=== PATIENT | female | born 1975 | race Caucasian/White ===

== ENCOUNTER 2016-08-25 18:13 | Emergency (ER) | payer OTHER ==
--- NOTE | 2016-08-25 20:09 | ED ---
Extremity Problem HPI - General Chief complaint: Extremity Problem,Nontraumatic Stated complaint: Post surgical bleed Time Seen by Provider: 08/25/16 19:42 Source: patient Mode of arrival: wheelchair Limitations: no limitations - History of Present Illness Initial comments: This 40-year-old white female presents for recheck of left leg wound. She apparently just had surgery earlier this week to move some hardware from a previous surgery resulting from a trimalleolar fracture of the left ankle. She had this surgery done by Dr. Topete 2 days ago. She noticed today that there was some slight blood oozing through the bandage. She also has had some mild to moderate throbbing. She was prescribed Motrin 800 as well as some [place]. She states that she does not like taking the narcotics so has only been taking the [place] and this seems to be alleviating her pain. She has not been ambulating on her leg as of yet. No other complaints or modifying factors. No fevers or chills. She was sent in by the on-call physician. - Related Data Home Medications Medication Instructions Recorded Confirmed Phentermine HCl [Adipex-P] 37.5 mg PO DAILY 05/25/14 05/26/14 Levothyroxine Sodium [Synthroid] 25 mcg PO DAILY 05/26/14 05/26/14 Linaclotide [Linzess] 145 mcg PO DAILY 05/26/14 05/26/14 Previous Rx's Medication Instructions Recorded Aspirin 325 mg PO BID 30 Days 05/27/14 HYDROcodone/APAP 10-325MG [[place] 1 - 2 each PO Q6H PRN #90 tab 05/27/14 10] Warfarin [Coumadin] 2.5 mg PO Q2D #7 tab 05/27/14 Diazepam [Valium] 5 mg PO Q8H PRN #30 tab 05/29/14 traMADol HCL [Ultram] 50 mg PO Q6HR PRN #60 tab 05/29/14 Allergies Allergy/AdvReac Type Severity Reaction Status Date / Time bee venom protein (honey bee) Allergy Anaphylaxis Verified 08/25/16 18:34 Review of Systems ROS Statement: Those systems with pertinent positive or pertinent negative responses have been documented in the HPI. ROS Other: All systems not noted in ROS Statement are negative. Past Medical History Past Medical History: Thyroid Disorder Additional Past Medical History / Comment(s): 05/25/14 Pt presented to [facility] ER after having gotten out of her car at work and slipped and fell- she heard a crack and was unable to walk on her L leg. States she also hit her head. Other HX: Pt was in [facility] last week for N/V/D and was told she had a slight "stomach bug" and IBS. She also has hx of a stomach diverticulum. Hypothyroid. History of Any Multi-Drug Resistant Organisms: None Reported Past Surgical History: Cholecystectomy, Orthopedic Surgery Additional Past Surgical History / Comment(s): Lap jus May 2013 with a tiny piece of liver removed d/t adherence, Thyroid, ganglion cyst removed from L wrist. Past Anesthesia/Blood Transfusion Reactions: No Reported Reaction Additional Past Anesthesia/Blood Transfusion Reaction / Comment(s): Pt has never recieved blood. Past Psychological History: No Psychological Hx Reported Additional Psychological History / Comment(s): Pt lives with her david and her 3 children. She is normally independent. She drives a car. Smoking Status: Never smoker Past Alcohol Use History: Occasional Past Drug Use History: None Reported - Past Family History Father Family Medical History: Congestive Heart Failure (CHF), Myocardial Infarction ( [place]) Additional Family Medical History / Comment(s): Father of a massive [place] at age 47 Mother Family Medical History: No Reported History Additional Family Medical History / Comment(s): Mother was born with one kidney. General Exam Limitations: no limitations General appearance: alert, in no apparent distress Extremities exam: Present: tenderness (There is some mild tenderness noted to the left distal leg.), other (There is well-healing nonbleeding postsurgical wounds noted primarily to the lateral aspect of the left distal tibia/fibula region and also on the medial malleoli her region to a lesser extent. There is no identifiable erythema. There are no signs of infection. There is no current drainage or bleeding.) Neurological exam: Present: alert, oriented X3. Absent: motor sensory deficit Course Vital Signs 08/25/16 18:29 Temperature 98.4 F Pulse Rate 88 Respiratory 18 Rate Blood Pressure 139/92 O2 Sat by Pulse 96 Oximetry Medical Decision Making - Medical Decision Making The patient was seen and examined. A dressing was removed. It appears that the wound is healing well and there is no evidence of infection or bleeding. Is felt that she is stable for discharge home and leaves in no distress. She is instructed to take her Motrin or [place] as needed for pain. The wound was redressed exactly like it was prior. Disposition Clinical Impression: Encounter for postoperative wound check, Bleeding from wound Disposition: HOME SELF-CARE Condition: Good Instructions: Care For Your Stitches (ED) Additional Instructions: Please follow-up with Dr. Topete as previously instructed. Please continue with your postsurgical instructions. Referrals: Olga Lidia Gross MD [Primary Care Provider] - 1-2 days Time of Disposition: 20:08
[2016-08-25 20:50] VITALS: BP 155/88; PULSE 89; RESP 16; TEMP 98.7
== END 2016-08-25 20:50 | disposition home or self-care (01) ==
LOC: EC 18:13
DX: M96.831 Postprocedural hemorrhage of a musculoskeletal structure following other procedure (principal); E03.9 Hypothyroidism, unspecified; K58.9 Irritable bowel syndrome, unspecified; Z79.899 Other long term (current) drug therapy; Z91.030 Bee allergy status; Z96.662 Presence of left artificial ankle joint; Y83.1 Surgical operation with implant of artificial internal device as the cause of abnormal reaction of the patient, or of later complication, without mention of misadventure at the time of the procedure
CPT/HCPCS: 99282

== ENCOUNTER 2016-09-03 20:20 | Emergency (ER) | payer OTHER ==
--- NOTE | 2016-09-03 21:14 | ED ---
Extremity Problem HPI - General Chief complaint: Extremity Problem,Nontraumatic Stated complaint: L leg swelling Time Seen by Provider: 09/03/16 21:02 Source: patient Mode of arrival: ambulatory Limitations: no limitations - History of Present Illness Initial comments: This patient is a 40-year-old woman who presents because she has had increased swelling to the left lower extremity and also some pain that she describes as "like when you pull a calf muscle." She notes that less than 2 weeks ago she had hardware removed from her left ankle that had been placed for ORIF of a trimalleolar fracture. Patient denies chest symptoms, including no fever or chills, cough, hemoptysis, dyspnea, chest pains, palpitations, lightheadedness or syncope. MD Complaint: extremity pain, extremity swelling Onset/Timin -: days(s) Location: left, lower extremity History of Same: Yes Quality: dull Consistency: constant Improves with: elevation Worsens with: walking Associated Symptoms: denies other symptoms - Related Data Home Medications Medication Instructions Recorded Confirmed Cephalexin [Keflex] 500 mg PO QID 08/25/16 09/03/16 HYDROcodone/APAP 5-325MG [[place] 1 tab PO Q6HR PRN 08/25/16 09/03/16 5-325] Ibuprofen [Motrin] 800 mg PO TID PRN 08/25/16 09/03/16 Thyroid,Pork [[place] Thyroid] 60 mg PO QAM 08/25/16 09/03/16 Fluconazole [Diflucan] 150 mg PO ONCE 09/03/16 09/03/16 Allergies Allergy/AdvReac Type Severity Reaction Status Date / Time venom-honey bee Allergy Anaphylaxis Verified 09/03/16 21:05 Review of Systems ROS Statement: Those systems with pertinent positive or pertinent negative responses have been documented in the HPI. ROS Other: All systems not noted in ROS Statement are negative. Constitutional: Denies: fever, chills Respiratory: Denies: cough, dyspnea, hemoptysis Cardiovascular: Reports: as per HPI, edema. Denies: chest pain, palpitations, syncope Gastrointestinal: Denies: abdominal pain, vomiting, diarrhea Musculoskeletal: Denies: back pain Skin: Denies: rash Neurological: Denies: headache Past Medical History Past Medical History: Thyroid Disorder Additional Past Medical History / Comment(s): 05/25/14 Pt presented to [facility] ER after having gotten out of her car at work and slipped and fell- she heard a crack and was unable to walk on her L leg. States she also hit her head. Other HX: Pt was in [facility] last week for N/V/D and was told she had a slight "stomach bug" and IBS. She also has hx of a stomach diverticulum. Hypothyroid. History of Any Multi-Drug Resistant Organisms: None Reported Past Surgical History: Cholecystectomy, Orthopedic Surgery, Tubal Ligation Additional Past Surgical History / Comment(s): Lap jus May 2013 with a tiny piece of liver removed d/t adherence, Thyroid, ganglion cyst removed from L wrist. multiple surgeries to left ankle Past Anesthesia/Blood Transfusion Reactions: No Reported Reaction Additional Past Anesthesia/Blood Transfusion Reaction / Comment(s): Pt has never recieved blood. Past Psychological History: No Psychological Hx Reported Smoking Status: Never smoker Past Alcohol Use History: Occasional Past Drug Use History: None Reported - Past Family History Father Family Medical History: Congestive Heart Failure (CHF), Myocardial Infarction ( [place]) Additional Family Medical History / Comment(s): Father of a massive [place] at age 47 Mother Family Medical History: No Reported History Additional Family Medical History / Comment(s): Mother was born with one kidney. General Exam Limitations: no limitations General appearance: alert, in no apparent distress Extremities exam: Present: full ROM, normal capillary refill, pedal edema, calf tenderness, other (There is a small amount of ecchymosis distal to the surgery. She does have Steri-Strips and sutures intact. There is a moderate amount of soft tissue swelling. No abnormal warmth, erythema, or any discharge.). Absent : tenderness, joint swelling Neurological exam: Present: alert. Absent: motor sensory deficit Skin exam: Present: warm, dry, intact, normal color. Absent: rash Course Vital Signs 09/03/16 20:43 Temperature 98.5 F Pulse Rate 104 H Respiratory 18 Rate Blood Pressure 141/79 O2 Sat by Pulse 99 Oximetry Disposition Clinical Impression: Leg pain, left Disposition: HOME SELF-CARE Condition: Good Instructions: Leg Pain (ED) Referrals: Olga Lidia Gross MD [Primary Care Provider] - 1-2 days Marco Topete DO [Doctor of Osteopathic Medicine] - 1-2 days
--- NOTE | 2016-09-03 22:27 | US ---
EXAM: US Duplex Left Lower Extremity Veins CLINICAL HISTORY: Reason: Pain, R/O DVT TECHNIQUE: Real-time ultrasound scan of the veins of the left lower extremity with color Doppler flow, spectral waveform analysis and compression. COMPARISON: No relevant prior studies available. FINDINGS: Deep veins: Unremarkable. No DVT in the common femoral, femoral, proximal deep femoral or popliteal veins. The veins are compressible with normal color flow and augmentation. Superficial veins: Unremarkable. No thrombus in the visualized greater saphenous vein. IMPRESSION: No ultrasound evidence of deep venous thrombosis.
[2016-09-03 22:54] VITALS: BP 132/81; PULSE 86; RESP 16; TEMP 98
== END 2016-09-03 22:54 | disposition home or self-care (01) ==
LOC: EC 20:20
DX: M79.605 Pain in left leg (principal); M79.89 Other specified soft tissue disorders; R58 Hemorrhage, not elsewhere classified; E07.9 Disorder of thyroid, unspecified; Z79.899 Other long term (current) drug therapy; Z91.030 Bee allergy status
CPT/HCPCS: 99283

== ENCOUNTER → 2018-05-31 | Outpatient (CLI) | payer OTHER ==
--- NOTE | 2018-06-03 08:17 | MM ---
Reason for exam: screening (asymptomatic). Baseline mammogram. Physical Findings: Nurse did not find any significant physical abnormalities on exam. MG Screening Mammo w CAD Bilateral CC and MLO view(s) were taken. The breast tissue is heterogeneously dense. This may lower the sensitivity of mammography. Asymmetric breast tissue in right upper outer quadrant. These results were verbally communicated with the patient and result sheet given to the patient on 05/31/18. ASSESSMENT: Incomplete: need additional imaging evaluation, BI-RAD 0 RECOMMENDATION: Special view mammogram of the right breast.
--- NOTE | 2018-06-03 08:18 | MM ---
Reason for exam: additional evaluation requested from abnormal screening. Physical Findings: Breast exam preformed at baseline screening. MG Work Up Mamm w CAD RT Spot compression CC, spot compression MLO, and ML view(s) were taken of the right breast. The breast tissue is heterogeneously dense. This may lower the sensitivity of mammography. Asymmetric breast tissue persists. These results were verbally communicated with the patient and result sheet given to the patient on 05/31/18. ASSESSMENT: Incomplete: need additional imaging evaluation, BI-RAD 0 RECOMMENDATION: Ultrasound of the right breast.
--- NOTE | 2018-06-03 08:20 | USB ---
Reason for exam: additional evaluation requested from abnormal screening. US Breast Workup RT Right complete breast ultrasound includes all four quadrants, the retroareolar region and axilla. Finding demonstrates a 0.3 x 0.4 x 0.3cm oval, cystic lesion at 2 o'clock, a 0.6 x 0.5 x 0.5cm oval, cystic lesion at 10 o'clock, a 0.7 x 1.0 x 0.4cm oval, cystic lesion in dense tissue at 10 o'clock, a 0.5 x 0.5 x 0.3cm oval, cystic lesion at 11 o'clock and a 1.9 x 4.0 x 1.3cm cystic node at the axilla. These results were verbally communicated with the patient and result sheet given to the patient on 05/31/18. ASSESSMENT: Probably benign, BI-RAD 3 RECOMMENDATION: Ultrasound of the right breast in 6 months.
== END | disposition home or self-care (01) ==
LOC: RADMAMWWP 12:38
PROVIDERS: ATTEND Internal Medicine
DX: Z12.31 Encounter for screening mammogram for malignant neoplasm of breast (principal); R92.8 Other abnormal and inconclusive findings on diagnostic imaging of breast
CPT/HCPCS: 77065; 77067

== ENCOUNTER 2018-10-18 05:53 | Day surgery (SDC) | payer OTHER ==
[2018-10-14 16:20] VITALS: BMI 32.6
--- NOTE | 2018-10-17 07:15 | P.HPOB ---
History of Present Illness H&P Date: 10/17/18 Chief Complaint: Menorrhagia This patient is a pleasant 42-year-old 3 para 3 female who presented to my office with complaints of heavy and long periods requesting treatment. She is evaluation consisted of an ultrasound which was normal. I discussed options with her including hormonal treatment versus surgical treatment she has requested NovaSure endometrial ablation for treatment. Review of Systems Genitourinary: Reports menorrhagia Menstruation: Reports as per HPI Past Medical History Past Medical History: Thyroid Disorder Additional Past Medical History / Comment(s): Hypothyroid, states heavy,frequent menstrual periods. History of Any Multi-Drug Resistant Organisms: None Reported Past Surgical History: Cholecystectomy, Orthopedic Surgery, Tubal Ligation Additional Past Surgical History / Comment(s): Lap jus May 2013 with a tiny piece of liver removed d/t adherence, Thyroid, ganglion cyst removed from L wrist. ,surgery x3 left ankle with hardware. Past Anesthesia/Blood Transfusion Reactions: No Reported Reaction Additional Past Anesthesia/Blood Transfusion Reaction / Comment(s): . Past Psychological History: No Psychological Hx Reported Additional Psychological History / Comment(s): . Smoking Status: Never smoker Past Alcohol Use History: Occasional Past Drug Use History: None Reported - Past Family History Father Family Medical History: Congestive Heart Failure (CHF), Myocardial Infarction ([place]) Additional Family Medical History / Comment(s): Father of a massive [place] at age 47 Mother Family Medical History: No Reported History Additional Family Medical History / Comment(s): Mother was born with one kidney. Medications and Allergies Home Medications Medication Instructions Recorded Confirmed Type Aspirin/Acetaminophen/Caffeine 1 each PO DIRECTED PRN 10/14/18 10/14/18 History [Excedrin Migraine Caplet] Levothyroxine Sodium [Synthroid] 150 mcg PO DAILY 10/14/18 10/14/18 History Multivitamin [Multivitamins Adult 1 each PO DAILY 10/14/18 10/14/18 History Gummies] Allergies Allergy/AdvReac Type Severity Reaction Status Date / Time venom-honey bee Allergy Anaphylaxis Verified 10/14/18 15:56 Exam - OBG Physical Exam Abdomen: bowel sounds normal, no diffuse tenderness, no bruit present, no guarding noted, no hepatomegaly, no splenomegaly, no mass Vulva: both: normal Vagina: normal moisture, no discharge Cervix: no lesion, no discharge Uterus: normal size, normal contour Adnexa: both: normal Results Ultrasound done on September 02 showed normal uterus and ovaries Assessment and Plan Assessment: This is a pleasant 42-year-old 3 para 3 female with long-standing menorrhagia requesting NovaSure endometrial ablation for treatment. Plan is hysteroscopy, D&C, and NovaSure endometrial ablation. Patient I have discussed the surgery and risks including risks of infection, bleeding, possible uterine perforation, and/or thermal injury. All the patient's questions are answered and a written consent is obtained. (1) Menorrhagia Status: Chronic Code(s): N92.0 - EXCESSIVE AND FREQUENT MENSTRUATION WITH REGULAR CYCLE SNOMED Code(s): 690739554
[~2018-10-18 05:53] MED LIST: Pre Op ABX Message 1 EACH MISC MISCELLANE ONE
[2018-10-18] MEDS ORDERED: MIDAZOLAM 2 MG/2 ML VIAL IV PRN (05:55)
[2018-10-18] MEDS ORDERED: LACTATED RINGERS 1,000 ML IV SCH (05:55)
[2018-10-18] MEDS ORDERED: DEXAMETHASONE SOD PHOSPHATE 10 MG/ML 1 ML VIAL IV ONE (05:55)
[2018-10-18] MEDS ORDERED: ONDANSETRON 4 MG/2 ML VIAL IVP ONE (05:55)
[2018-10-18] MEDS ORDERED: LIDOCAINE 1% 20 ML VIAL (10MG/ML) FOR IV START IV ONE (06:40)
[2018-10-18] MEDS ORDERED: PROPOFOL 10 MG/ML 20 ML VIAL IV ONE (07:25)
[2018-10-18] MEDS ORDERED: fentaNYL (PF) 50 MCG/ML 2 ML AMP ONE (07:25)
[2018-10-18] MEDS ORDERED: LIDOCAINE 1% INJ 10MG/ML (20 ML MDV) ONE (07:25)
[2018-10-18] MEDS ORDERED: KETOROLAC 30 MG/ML 1 ML VIAL ONE (07:25)
[2018-10-18] MEDS ORDERED: MIDAZOLAM 2 MG/2 ML VIAL ONE (07:25)
[2018-10-18] MEDS ORDERED: LACTATED RINGERS 1,000 ML IV ONE (08:02)
--- NOTE | 2018-10-18 08:08 | P.OP ---
Date of Procedure: 10/18/18 Preoperative Diagnosis: Menorrhagia Postoperative Diagnosis: Same Procedure(s) Performed: #1: Hysteroscopy. #2: Dilation and curettage. #3: NovaSure endometrial ablation Anesthesia: other (LMA) Surgeon: Asim Yan Estimated Blood Loss (ml): 10 Urine output (ml): 20 Pathology: other (Uterine curettings) Condition: stable Disposition: PACU Indications for Procedure: Please see dictated H&P intimate details of this patient's admission. Brief summary this is a pleasant 42-year-old multipara first patient has a long- standing menorrhagia requesting endometrial ablation for treatment. Patient's evaluations included a ultrasound which was negative. Operative Findings: This patient a normal-appearing endometrial cavity. Description of Procedure: This patient is taken to the operating room where she is laid in the supine position. She subsequently undergoes general anesthesia without incident. With adequate level of anesthesia was placed in dorsal lithotomy position. She has a vaginal perineal prep and drape. Examination under anesthesia shows uterus to be mid position. I first drain her bladder for 20 mL clear urine. Weighted speculum placed in posterior vagina. Anterior lip the cervix was grabbed with an Allis clamp. Uterus is then sounded to 9 cm. Gentle dilation is done of the endocervix to allow the hysteroscope into the uterine cavity. Hysteroscopy is performed with saline solution. Uterine cavity is measured a length of 6.0 cm. There is no evidence of any polyps, fibroids, or other growths. With this done cervix is dilated slightly more to allow a small curette easily uterine cavity a gentle but thorough 4 quadrant curettage is then done. With this completed the NovaSure device is then opened appears to be intact. Set at a length of 6.0 cm and seated in place and opens up to a width of 4.7 cm. After it is seated in place and it passes the cavity integrity test, is enabled at 155 W setting for 57 seconds. With this done the NovaSure device is then removed. Appears to be intact. Hysteroscopy is performed once again the uterine cavity appears to be completely ablated up to the endocervix. With this done the procedure is ended. The weighted speculum and Allis clamps removed. All counts correct 3. There are no complications. Patient is awakened from anesthesia and taken to the recovery room in satisfactory condition.
[2018-10-18 08:17] VITALS: RESP 16; TEMP 97.4
[2018-10-18] MEDS: HYDROmorphone 0.5 MG/0.5 ML SYRINGE IVP PRN ×3 (08:25→08:43)
[2018-10-18 09:27] VITALS: BP 133/82; PULSE 81
== END 2018-10-18 09:58 | disposition home or self-care (01) ==
LOC: OR 05:53
PROVIDERS: ATTEND Obstetrics & Gynecology
DX: N92.0 Excessive and frequent menstruation with regular cycle (principal); E03.9 Hypothyroidism, unspecified; G43.909 Migraine, unspecified, not intractable, without status migrainosus; Z90.49 Acquired absence of other specified parts of digestive tract; Z98.51 Tubal ligation status; Z98.890 Other specified postprocedural states; Z82.49 Family history of ischemic heart disease and other diseases of the circulatory system; Z79.890 Hormone replacement therapy; Z79.899 Other long term (current) drug therapy; Z91.030 Bee allergy status; Z79.82 Long term (current) use of aspirin
CPT/HCPCS: 58563; 81025; 88305; J2250; J1100; J2405; J2001; J3010; J1885; J2704; J1170

== ENCOUNTER → 2018-11-13 | Outpatient (CLI) | payer OTHER ==
[2018-11-13 15:56] LABS: T4, Free (Free Thyroxine) 1.4 ng/dL (0.80-1.80)
== END | disposition home or self-care (01) ==
LOC: LABWHC1 08:42
PROVIDERS: ATTEND Internal Medicine Endocrinology, Diabetes & Metabolism
DX: R53.83 Other fatigue (principal)
CPT/HCPCS: 36415; 84439; 84443; 84480

== ENCOUNTER → 2019-02-10 | Outpatient (CLI) | payer OTHER ==
--- NOTE | 2019-02-10 16:32 | CT ---
EXAMINATION TYPE: CT brain wo con DATE OF EXAM: 02/10/2019 COMPARISON: None HISTORY: Chronic migraines. CT DLP: [address] of the brain was performed. The ventricles, basal cisterns and sulci overlying the cerebral convexities demonstrate a normal appe arance. There is no evidence for intracranial hemorrhage or sulcal effacement. No mass effects are seen. Osseous calvarium is intact. If symptoms persist consider MRI as clinically warranted. IMPRESSION: 1. No acute intracranial process is seen at this time.
== END | disposition home or self-care (01) ==
LOC: RADCTMAIN 15:49
PROVIDERS: ATTEND Internal Medicine
DX: R51 Headache (principal)
CPT/HCPCS: 70450

== ENCOUNTER → 2019-09-16 | Outpatient (CLI) | payer OTHER ==
--- NOTE | 2019-09-16 13:03 | MR ---
EXAMINATION TYPE: MR brain wo con DATE OF EXAM: 09/16/2019 11:35 AM COMPARISON: NONE HISTORY: Headache, sudden onset Multiplanar and multispin-echo imaging of the brain was performed . The ventricles, basal cisterns and sulci overlying the cerebral convexities are within normal limits. There is no evidence for midline shift or mass effect. Acute intracranial hemorrhage or extra-axial collection is not evident. Noted are 3 or 4 tiny foci of increased signal within the deep white matter of the cerebral hemispher es which are too small to characterize. No acute edema is identified. The paranasal sinuses and mastoid air cells are well-aerated. IMPRESSION: Too small to characterize nonspecific tiny white matter lesions.
== END | disposition home or self-care (01) ==
LOC: RADMRIMAIN 10:42
PROVIDERS: ATTEND Psychiatry & Neurology Neurology
DX: R90.82 White matter disease, unspecified (principal)
CPT/HCPCS: 70551

== ENCOUNTER → 2019-09-16 | Outpatient (CLI) | payer OTHER | END | disposition home or self-care (01) | LOC: RADMRIMAIN 07:07 | PROVIDERS: ATTEND Psychiatry & Neurology Neurology | DX: Z53.9 Procedure and treatment not carried out, unspecified reason (principal) ==

== ENCOUNTER → 2019-11-07 | Outpatient (CLI) | payer OTHER | END | disposition home or self-care (01) | LOC: LABWHC1 08:44 | PROVIDERS: ATTEND Internal Medicine Endocrinology, Diabetes & Metabolism | DX: E03.8 Other specified hypothyroidism (principal) | CPT/HCPCS: 36415; 84443 ==

== ENCOUNTER → 2020-05-24 | Outpatient (CLI) | payer OTHER | END | disposition home or self-care (01) | LOC: LABWHC1 08:54 | PROVIDERS: ATTEND Internal Medicine Endocrinology, Diabetes & Metabolism | DX: E03.8 Other specified hypothyroidism (principal) | CPT/HCPCS: 36415; 84443 ==

== ENCOUNTER → 2020-12-09 | Outpatient (CLI) | payer OTHER | END | disposition home or self-care (01) | LOC: LABWHC1 08:07 | PROVIDERS: ATTEND Internal Medicine Endocrinology, Diabetes & Metabolism | DX: E03.8 Other specified hypothyroidism (principal) | CPT/HCPCS: 36415; 84443 ==

== ENCOUNTER → 2021-01-07 | Outpatient (CLI) | payer OTHER ==
[2021-01-07 09:46] LABS: African American GFR (CKD) >90 (>60 ml/min/1.73 sqM); Anion Gap 5 mmol/L; Blood Urea Nitrogen 10 mg/dL (7-17); Calcium 9.4 mg/dL (8.4-10.2); Carbon Dioxide 30 mmol/L (22-30); Chloride 103 mmol/L (98-107); Glucose 102 mg/dL (74-99); Non-African American GFR(CKD) >90 (>60 ml/min/1.73 sqM); Potassium 4.3 mmol/L (3.5-5.1); Sodium 138 mmol/L (137-145)
[2021-01-07 09:59] LABS: Basophils % (A) 1 %; Eosinophils # (A) 0.1 k/uL (0-0.7); Eosinophils % (A) 2 %; HCT 42.2 % (34.0-46.0); HGB 14.7 gm/dL (11.4-16.0); Lymphocytes # (A) 1.7 k/uL (1.0-4.8); Lymphocytes % (A) 28 %; MCH 31.8 pg (25.0-35.0); MCHC 34.7 g/dL (31.0-37.0); MCV 91.6 fL (80.0-100.0); Mean Platelet Volume 8.7; Monocytes # (A) 0.3 k/uL (0-1.0); Monocytes % (A) 4 %; Neutrophils # (A) 3.9 k/uL (1.3-7.7); Neutrophils % (A) 64 %; Platelet Count 241 k/uL (150-450); RBC 4.61 m/uL (3.80-5.40); RDW 12.5 % (11.5-15.5); WBC 6.1 k/uL (3.8-10.6)
== END | disposition home or self-care (01) ==
LOC: LABPAT 07:55
PROVIDERS: ATTEND Obstetrics & Gynecology
DX: Z01.812 Encounter for preprocedural laboratory examination (principal)
CPT/HCPCS: 36415; 80048; 85025

== ENCOUNTER 2021-01-13 07:37 | Observation (INO) | payer OTHER ==
[2021-01-11 14:56] VITALS: BMI 30.4
--- NOTE | 2021-01-12 16:25 | P.HPOB ---
History of Present Illness H&P Date: 01/12/21 Chief Complaint: Uterine fibroids and post-ablative syndrome Patient is a 45-year-old female with continued bleeding and pain with her cycles and history of NovaSure ablation. She also is noted to have fibroids on her ultrasound. She is scheduled for a robotic-assisted laparoscopic hysterectomy with bilateral salpingectomy possible GLADIS and possible BSO. 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 Possible need further surgery. All questions are answered for her prior to proceeding to the operating room. We'll also have a diagnostic cystoscopy. Past Medical History Past Medical History: Thyroid Disorder Additional Past Medical History / Comment(s): Hypothyroid, states heavy,frequent menstrual periods.uterine fibroid. migraines, pt states recent fall with bruise inner bicep and lt knee scraped History of Any Multi-Drug Resistant Organisms: None Reported Past Surgical History: Cholecystectomy, Orthopedic Surgery, Tubal Ligation Additional Past Surgical History / Comment(s): Lap jus May 2013 with a tiny piece of liver removed d/t adherence, ganglion cyst removed from L wrist. ,surgery x3 left ankle with hardware. Past Anesthesia/Blood Transfusion Reactions: Previous Problems w/ Anesthesia Additional Past Anesthesia/Blood Transfusion Reaction / Comment(s): with tubal ligation woke up during procedure with tube in place Smoking Status: Never smoker - Past Family History Father Family Medical History: Congestive Heart Failure (CHF), Myocardial Infarction ([place]) Additional Family Medical History / Comment(s): Father of a massive [place] at age 47 Mother Family Medical History: No Reported History Additional Family Medical History / Comment(s): Mother was born with one kidney. Medications and Allergies Home Medications Medication Instructions Recorded Confirmed Type Levothyroxine Sodium [Synthroid] 150 mcg PO DAILY 10/14/18 01/11/21 History Multivitamin [Multivitamins Adult 1 each PO DAILY 10/14/18 01/11/21 History Gummies] Imitrex (Unknown Dose) 1 tab PO DAILY PRN 01/11/21 01/11/21 History Nortec 1 tab PO DAILY PRN 01/11/21 01/11/21 History Allergies Allergy/AdvReac Type Severity Reaction Status Date / Time venom-honey bee Allergy Anaphylaxis Verified 01/11/21 14:42 Exam Osteopathic Statement: *. No significant issues noted on an osteopathic structural exam other than those noted in the History and Physical/Consult. - OBG Physical Exam Breast: both: normal (no masses) Abdomen: bowel sounds normal, no diffuse tenderness, no bruit present, no guarding noted, no hepatomegaly, no splenomegaly, no mass Vulva: both: normal Vagina: normal moisture, no discharge Cervix: no lesion, no discharge Uterus: normal size, normal contour Adnexa: both: normal Anus/Rectum: normal perianal skin, no rectal mass, no hemorrhoids, heme negative
[~2021-01-13 07:37] MED LIST changes: +DEXAMETHASONE SOD PHOSPHATE 4 MG/ML 1 ML VIAL IV ONE; +LIDOCAINE 1% (10MG/ML) FOR IV START INTRADERMA PRN; +MIDAZOLAM 2 MG/2 ML VIAL IV PRN; +ONDANSETRON 4 MG/2 ML VIAL IVP ONE; -Pre Op ABX Message 1 EACH MISC MISCELLANE ONE
[2021-01-13] MEDS: LACTATED RINGERS 1,000 ML IV SCH (08:39)
[2021-01-13] MEDS ORDERED: MIDAZOLAM 2 MG/2 ML VIAL IVP ONE (08:55)
[2021-01-13] MEDS ORDERED: fentaNYL (PF) 50 MCG/ML 2 ML AMP IVP ONE (08:55)
[2021-01-13] MEDS ORDERED: NEOSTIGMINE 1 MG/ML 10 ML VIAL ONE (09:18)
[2021-01-13] MEDS ORDERED: KETOROLAC 15 MG/ML 1 ML VIAL ONE (09:18)
[2021-01-13] MEDS ORDERED: LIDOCAINE 1% INJ 10MG/ML (20 ML MDV) ONE (09:18)
[2021-01-13] MEDS ORDERED: SODIUM CHLORIDE 0.9% (PF) 10 ML VIAL ONE (09:18)
[2021-01-13] MEDS ORDERED: GLYCOPYRROLATE 0.2 MG/ML 2 ML VIAL ONE (09:18)
[2021-01-13] MEDS ORDERED: DEXAMETHASONE SOD PHOSPHATE 4 MG/ML 1 ML VIAL ONE (09:18)
[2021-01-13] MEDS ORDERED: HYDROmorphone (PF) 1 MG/ML ONE (09:18)
[2021-01-13] MEDS ORDERED: ROCURONIUM 10 MG/ML (5 ML VIAL) IV ONE (09:18)
[2021-01-13] MEDS ORDERED: PROPOFOL 10 MG/ML 20 ML VIAL IV ONE (09:18)
[2021-01-13] MEDS ORDERED: SUCCINYLCHOLINE CHLORIDE 100 MG/5 ML SYR IV ONE (09:18)
[2021-01-13] MEDS ORDERED: ROPIVACAINE 5 MG/ML 30 ML VIAL ONE (09:18)
[2021-01-13] MEDS ORDERED: BUPIVACAINE (PF) 0.25% 30 ML VIAL SQ ONE (10:09)
[2021-01-13] MEDS ORDERED: ONDANSETRON 4 MG/2 ML VIAL IVP PRN (10:38)
--- NOTE | 2021-01-13 10:45 | P.OP ---
Date of Procedure: 01/13/21 Preoperative Diagnosis: Pelvic pain: Post bladder syndrome: Fibroid uterus Postoperative Diagnosis: Same Procedure(s) Performed: Robotic-assisted laparoscopic hysterectomy with bilateral salpingectomy and cystoscopy Anesthesia: CORBY Surgeon: Juan Francisco Zazueta Tank Pumper #1: Cathryn Alvarez Estimated Blood Loss (ml): 20 IV fluids (ml): 1,000 Urine output (ml): 150 Pathology: other (Uterus, cervix and fallopian tubes) Condition: stable Disposition: floor Operative Findings: Normal ovaries Description of Procedure: Patient was taken to the operating suite where he generalized anesthetic found be adequate. She was prepped and draped in the normal sterile fashion and placed in the dorsal lithotomy position. Initially a weighted speculum was inserted in the vagina and the anterior lip cervix identified and grasped single-toothed tenaculum. Cervix was then dilated and sounded to 8 cm. Sutures were placed at 3 and 9 and a Lily manipulator with a cup size of 3.5 mL one length of 8 cm was inserted without difficulty other instruments were then removed and a Go cath was placed. Gloves were then changed and attention was turned to the abdominal portion of the procedure were 2 mL of quarter percent Marcaine was injected periumbilically. Through this injected anesthetic a 5 mm skin incision was made. Through this incision, under direct visualization. Trocar, the camera was inserted. Once peritoneal placement was assured gas was allowed to fully insufflate the abdomen and patient was placed in steep Trendelenburg position approximately 25. 2 lateral ports were then placed through 8 mm skin incisions with da Justin ports approximately 12 cm lateral to the umbilicus. A fourth port and sleeve was inserted through a 1 cm incision between the left lateral and the medial port. Medial port was exchanged for a robotic camera port and the left scopic was removed from the field. Robot was brought in and docked. Once fully docked a scissor was placed into arm and a Maryland grasper in the one arm and at this point I broke scrub and went to the console. Observations pelvis were noted. The uterus was elevated and the left fallopian tube identified cauterized through the mesosalpinx and excised. Once this was completed left utero-ovarian ligament was identified cauterized and transected. Moving through the mesosalpinx to the round ligament tissues cau terized and transected. Remley was then cauterized transected and anterior posterior leafs of the broad ligament were developed. Vascularity along the left side of the uterus was then cauterized. Bladder flap was identified and entered with the Maryland and incised across face uterus with the scissor using an undermining technique. Once fully across the bladder was bluntly dissected out of the operative field. Attention was then turned to the right side of the uterus which in a similar fashion was developed. Once this was completed with bladder out of the operative field balloon was blown up in the Lily manipulator and an anterior colpotomy was made. Cup was then followed 3 and 60 in a counterclockwise fashion cheating head when necessary teres to maintain excellent hemostasis. Once cervix was fully from the vaginal mucosa uterus was brought into the vagina to maintain pneumoperitoneum. Once all pedicles were verified to be hemostatic incidents were exchanged for a make suture cut and cardia grasper and using 2:00 suture the vaginal cuff was reapproximated. No bleeding is noted excellent hemostasis is verified therefore incidents were then removed and gas was allowed to expel the abdomen with 5 deep breaths been provided during this process. At this point Dr. Alvarez close incision subcuticular 4-0 Vicryl and injected around the incisions with remaining 8 mL of quarter percent Marcaine. Concurrently I did a cystoscopy with excellent flow noted from both ureteral jets. Sponge, lap, needle counts were all correct 2. Patient was then taken to the recovery room in stable and satisfactory condition.
[2021-01-13] MEDS: HYDROmorphone 0.5 MG/0.5 ML SYRINGE IVP PRN ×2 (11:01→11:07)
[2021-01-13] MEDS ORDERED: diphenhydrAMINE 50 MG/ML 1 ML VIAL ONE (11:02)
[2021-01-13] MEDS ORDERED: diphenhydrAMINE 50 MG/ML 1 ML VIAL IVP ONE (11:07)
--- NOTE | 2021-01-13 11:54 | P.ANPRN ---
Procedure Note - Anesthesia - Nerve Block Performed Bilateral Erector Spinae Single Time Out Performed: Yes Date of Procedure: 01/13/21 Procedure Start Time: 09:00 Procedure Stop Time: 09:08 Location of Patient: PreOp Indication: Acute Post-Operative Pain, Dx/Pain Location, Requested by Surgeon Specifically requested for management of pain by : Juan Francisco Zazueta Sedation Type: Sedate with meaningful contact maintained Preparation: Sterile Prep Position: Prone Catheter: None Needle Types: Facet Needle Gauge: 21 Ultrasound used to visualize needle placement: Yes Ultrasound used to observe medication spread: Yes Injectate: 0.5% Ropivacaine (see comment for volume) Blood Aspirated: No Pain Paresthesia on Injection Noted: No Resistance on Injection: Normal Image Stored and Saved: Yes Events: Uneventful and Well Tolerated (30cc 0.5% ropivacaine)
[2021-01-13] MEDS: KETOROLAC 15 MG/ML 1 ML VIAL IVP PRN ×2 (14:55→20:39)
[2021-01-13] MEDS ORDERED: ZOLPIDEM 5 MG TAB PO PRN (16:33)
[2021-01-13] MEDS: SIMETHICONE 80 MG CHEWABLE PO PRN ×2 (18:31→20:39)
[2021-01-13] MEDS: SENNOSIDES-DOCUSATE SODIUM 1 EACH TAB PO SCH (20:40)
[2021-01-13] MEDS: HYDROcodone/APAP 5-325MG 1 EACH TAB PO PRN (21:26)
[2021-01-14 02:03] VITALS: BP 132/79; PULSE 101; RESP 18; TEMP 98.8
[2021-01-14] MEDS: HYDROcodone/APAP 5-325MG 1 EACH TAB PO PRN (02:57)
[2021-01-14] MEDS: LACTATED RINGERS 1,000 ML IV SCH (06:15)
[2021-01-14] MEDS ORDERED: LEVOTHYROXINE 75 MCG TAB PO SCH (06:30)
[2021-01-14 07:30] LABS: Basophils # (A) 0.1 k/uL (0-0.2); Basophils % (A) 0 %; Eosinophils # (A) 0.1 k/uL (0-0.7); Eosinophils % (A) 0 %; HCT 40.1 % (34.0-46.0); HGB 13.3 gm/dL (11.4-16.0); Lymphocytes # (A) 2.6 k/uL (1.0-4.8); Lymphocytes % (A) 19 %; MCHC 33.3 g/dL (31.0-37.0); MCV 93.3 fL (80.0-100.0); Mean Platelet Volume 8.3; Monocytes # (A) 0.8 k/uL (0-1.0); Monocytes % (A) 6 %; Neutrophils # (A) 10.5 k/uL (1.3-7.7); Neutrophils % (A) 74 %; Platelet Count 210 k/uL (150-450); RDW 12.2 % (11.5-15.5); WBC 14.2 k/uL (3.8-10.6)
[2021-01-14] MEDS: KETOROLAC 15 MG/ML 1 ML VIAL IVP PRN (07:43)
[2021-01-14] MEDS: SIMETHICONE 80 MG CHEWABLE PO PRN (07:53)
[2021-01-14] MEDS: SENNOSIDES-DOCUSATE SODIUM 1 EACH TAB PO SCH (07:53)
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
== END 2021-01-14 09:45 | disposition home or self-care (01) ==
LOC: OR 07:37 → 4FBP 10:42 → OR 22:20 → 4FBP 22:23
PROVIDERS: ADMIT Obstetrics & Gynecology; ATTEND Obstetrics & Gynecology
DX: D25.1 Intramural leiomyoma of uterus (principal); N99.85 Post endometrial ablation syndrome; E03.9 Hypothyroidism, unspecified; G43.909 Migraine, unspecified, not intractable, without status migrainosus; Z91.81 History of falling; Z79.890 Hormone replacement therapy; Z91.030 Bee allergy status; Z90.49 Acquired absence of other specified parts of digestive tract; Z20.822 Contact with and (suspected) exposure to COVID-19; Z98.51 Tubal ligation status; Z82.49 Family history of ischemic heart disease and other diseases of the circulatory system; Z84.1 Family history of disorders of kidney and ureter
CPT/HCPCS: 52000; 58552; S2900; 64999; 81025; 85025; 86850; 86900; 86901; 87635; 88307

== ENCOUNTER → 2022-03-29 | Outpatient (CLI) | payer BC | END | disposition home or self-care (01) | LOC: LABWHC1 13:34 | PROVIDERS: ATTEND Internal Medicine Endocrinology, Diabetes & Metabolism | DX: E03.8 Other specified hypothyroidism (principal) | CPT/HCPCS: 36415; 84443 ==

== ENCOUNTER 2022-08-17 14:05 | Emergency (ER) | payer OTHER, BC ==
[2022-08-17 14:14] VITALS: RESP 18; TEMP 98
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
[2022-08-17] MEDS ORDERED: ONDANSETRON ODT 4 MG TAB PO STA (14:43)
[2022-08-17] MEDS ORDERED: MORPHINE SULFATE 4 MG/ML SYRINGE IM STA (14:43)
--- NOTE | 2022-08-17 15:21 | XR ---
EXAMINATION TYPE: XR pelvis AP view DATE OF EXAM: 08/17/2022 COMPARISON: NONE HISTORY: Pain The osseous structures are intact and the joint spaces are preserved. No acute fracture is seen. Vi sualized bowel gas pattern is nonspecific. Surgical clips in the pelvis noted. Calcifications are li cristóbal vascular. Mild arthropathy of the hips. IMPRESSION: 1. No acute fracture.
--- NOTE | 2022-08-17 15:24 | XR ---
EXAMINATION TYPE: XR ribs LT w pa chest xray DATE OF EXAM: 08/17/2022 COMPARISON: NONE HISTORY: Pain TECHNIQUE: Frontal view of the chest and 4 views of the left ribs are submitted FINDINGS: Lungs are clear. No consolidation. Heart size normal. AC joint arthropathy bilaterally. No pneumothor ax. There is hypertrophic arthropathy along the inferior margin of the humeral head and glenohumeral join t. Surgical clips are seen in the abdomen. No acute displaced rib fracture. No acute displaced rib fract ure. IMPRESSION: No acute displaced rib fracture.
[2022-08-17 16:11] VITALS: BP 127/87; PULSE 101
== END 2022-08-17 23:00 | disposition home or self-care (01) ==
LOC: EC 14:05
DX: Z04.3 Encounter for examination and observation following other accident (principal); R07.89 Other chest pain; T21.11XA Burn of first degree of chest wall, initial encounter; T14.8XXA Other injury of unspecified body region, initial encounter; E03.9 Hypothyroidism, unspecified; F12.90 Cannabis use, unspecified, uncomplicated; Z79.890 Hormone replacement therapy; Z91.030 Bee allergy status; W22.11XA Striking against or struck by driver side automobile airbag, initial encounter; Y92.410 Unspecified street and highway as the place of occurrence of the external cause
CPT/HCPCS: 71101; 72170; 99284; 96372; J2270

== ENCOUNTER → 2023-10-08 | Outpatient (CLI) | payer BC ==
--- NOTE | 2023-10-08 07:48 | MM ---
Reason for Exam: Clinical finding. Last mammogram was performed 5 year(s) and 4 month(s) ago. Patient History: Menarche at age 10. First Full-Term at age 17. Risk Values: Pam 5 year model risk: 0.7%. NCI Lifetime model risk: 7.4%. Tissue Density: There are scattered areas of fibroglandular density. Findings: Analyzed By CAD. No distinct abnormality seen at the site of clinical concern right breast. Ultrasound is recommended however. At the approximate 4:00 position left breast 8 cm from the nipple there is a 2.2 cm mass. Ultrasound also recommended at this location. Overall Assessment: Incomplete: need additional imaging evaluation, BI-RAD 0 Management: Diagnostic Breast Ultrasound of both breasts. . Results were given to the patient verbally at the time of exam. Patient should continue monthly self-breast exams. A clinical breast exam by your physician is recommended on an annual basis. This exam should not preclude additional follow-up of suspicious palpable abnormalities. Note on Pam scores and lifetime risk: 1. A Pam score greater than 3% is considered moderate risk. If this is the case, consider specialist referral to assess eligibility for a risk reducing agent. 2. If overall lifetime risk for the development of breast cancer is 20% or higher, the patient may qualify for future screening with alternating mammogram and breast MRI. Electronically signed and approved by: Shashi Sanchez M.D. Radiologis
--- NOTE | 2023-10-08 08:09 | USB ---
Reason for Exam: Clinical finding. Patient History: Menarche at age 10. First Full-Term at age 17. Hysterectomy at age 45. Maternal aunt had breast cancer, age 47. Risk Values: Pam 5 year model risk: 0.7%. NCI Lifetime model risk: 7.4%. Technique: Method: Targeted. Prior Study Comparison: 05/31/2018 Bilateral Screening Mammogram, [facility]. 05/31/2018 Right Diagnostic Mammogram, [facility]. Findings: The area of palpable concern of the right breast and the lower outer quadrant of the left breast were scanned. Right breast: No solid or cystic mass seen at the site of clinical concern. Manage clinically. Left breast: At the left 4:00 position 8 cm from the nipple there is a 1.6 cm simple appearing cyst. No solid mass is detected. Overall Assessment: Benign, BI-RAD 2 Management: Screening Mammogram of both breasts in 1 year. A clinical breast exam by your physician is recommended on an annual basis and results should be correlated with mammographic findings. This exam should not preclude additional follow-up of suspicious palpable abnormalities. Results were given to the patient verbally at the time of exam. Electronically signed and approved by: Shashi Sanchez M.D. Radiologis
== END | disposition home or self-care (01) ==
LOC: RADMAMWWP 07:20
PROVIDERS: ATTEND Family Medicine
DX: N63.31 Unspecified lump in axillary tail of the right breast (principal); R92.323 Mammographic fibroglandular density, bilateral breasts; Z80.3 Family history of malignant neoplasm of breast
CPT/HCPCS: 77062; 77066

== ENCOUNTER → 2024-04-22 | Outpatient (CLI) | payer BC ==
--- NOTE | 2024-04-22 12:46 | CT ---
EXAMINATION TYPE: CT iac wo con DATE OF EXAM: 04/22/2024 12:13 PM COMPARISON: None. INDICATION: Patient age: Female; 48 years old; Reason for study: H83.8X1 hearing loss; . TECHNIQUE: Multiple thin axial images were obtained through the temporal bones and internal auditory canals. Additional coronal reformatted images were obtained. No IV contrast was utilized. STENVER a nd POSCHL views were created on a separate work station. CT Contrast: mL of , none. CT DLP: 241 mGycm, Automated exposure control for dose reduction was used. FINDINGS: Right Temporal Bone: External Ear: The external auditory canal is unremarkable, The tympanic membrane is present and unrem arkable. Middle Ear: The ossicles demonstrate a normal appearance. Prussak's space is clear and the scutum i s intact. There is no evidence of osseous erosion and the tegmen tympani is intact. Inner Ear: Cochlea, vestibule and semi circular canals are unremarkable. No evidence of carotid richard l dehiscence. Two and a half turns of the cochlea are identified. The vestibular aqueduct is not enl arged. Mastoid Air Cells: The mastoid air cells are clear. The tegmen mastoideum is intact. The aditus ad an trum is clear. Internal Auditory Canal: The internal auditory canal is unremarkable. Left Temporal Bone: External Ear: The external auditory canal is unremarkable, The tympanic membrane is present and unrem arkable. Middle Ear: The ossicles demonstrate a normal appearance. Prussak's space is clear and the scutum i s intact. There is no evidence of osseous erosion and the tegmen tympani is intact. Inner Ear: Cochlea, vestibule and semi circular canals are unremarkable. No evidence of carotid richard l dehiscence. Two and a half turns of the cochlea are identified. The vestibular aqueduct is not enl arged. Mastoid Air Cells: The mastoid air cells are clear. The tegmen mastoideum is intact. The aditus ad an trum is clear. Internal Auditory Canal: The internal auditory canal is unremarkable. Other: Mild paranasal sinus mucosal thickening. IMPRESSION: Normal internal auditory canal study. [facility], , 04/22/2024 12:43 PM
== END | disposition home or self-care (01) ==
LOC: RADCTMAIN 11:44
PROVIDERS: ATTEND Otolaryngology Otology & Neurotology
DX: H83.8X1 Other specified diseases of right inner ear (principal); J34.89 Other specified disorders of nose and nasal sinuses
CPT/HCPCS: 70480